=== PATIENT | male | born 1985 | race Caucasian/White ===

== ENCOUNTER 2023-08-01 08:00 | Outpatient (CLI) | payer OTHER ==
--- NOTE | 2023-08-02 07:05 | XRAY Report ---
PROCEDURE: Knee 3V LT INDICATIONS: LEFT KNEE PAIN TECHNIQUE: 3 views of the knee(s) were acquired. COMPARISON: None. FINDINGS: Bones: No high-grade degenerative changes or acute fracture. No dislocation. Soft tissues: Possible small knee joint effusion. Possible prepatellar soft tissue swelling. IMPRESSION: No acute osseous radiographic abnormality. There may be a small joint effusion and swelling in the pr epatellar space. If there is high concern for further derangement, consider MRI evaluation. Reviewed by: Joseph Chiu MD on 08/02/2023 7:04 AM PDT Approved by: Joseph Chiu MD on 08/02/2023 7:04 AM PDT Station ID: [id number]
== END 2023-08-01 23:59 | disposition home or self-care (01) ==
LOC: DI.S 08:00
PROVIDERS: ATTEND Emergency Medicine
DX: M70.42 Prepatellar bursitis, left knee (principal)